=== PATIENT | female | born 1995 | race Caucasian/White ===

== ENCOUNTER 2018-04-08 03:48 | Emergency (ER) | payer OTHER ==
[~2018-04-08] VITALS: Ht 167.6 cm; Wt 67.0 kg
--- NOTE | 2018-04-08 04:17 | NUR ---
PT POSITIONED FOR COMFORT AND SAFETY. PULSE OX IN PLACE AND VSS. PT WITH FRIEND AT BEDSIDE.
--- NOTE | 2018-04-08 05:22 | NUR ---
PT REMAINS ASLEEP. NAD. FRIENDS AT BEDSIDE.
[2018-04-08 06:30] VITALS: BP 134/75
--- NOTE | 2018-04-08 06:31 | NUR ---
PT NOW AWAKENS EASILY. PT ABLE TO AMBULATE INDEPENDENTLY WITH STEADY GAIT. PT REQUESTING TO LEAVE. PT TO BE DRIVEN HOME BY SOBER FRIENDS AT BEDSIDE.
== END 2018-04-08 06:33 | disposition home or self-care (01) ==
LOC: ED 06:27
DX: F10.121 Alcohol abuse with intoxication delirium (principal)
CPT/HCPCS: 36415; 80307; 99283